=== PATIENT | male | born 1950 | race Caucasian/White ===

== ENCOUNTER → 2024-01-14 06:41 | Outpatient (REF) | payer MEDICARE, OTHER, SELFPAY ==
[2024-01-14 08:41] LABS: PSA, Total - Screen 2.18 ng/ml (0.0-4.0)
== END ==
LOC: REG 06:41
PROVIDERS: ATTENDING PHYSICIAN Urology; FAMILY PHYSICIAN Internal Medicine
DX: Z12.5 Encounter for screening for malignant neoplasm of prostate (principal)
CPT/HCPCS: 36415; G0103

== ENCOUNTER → 2024-01-27 06:33 | Outpatient (REF) | payer MEDICARE, OTHER, SELFPAY ==
[2024-01-27 08:17] LABS: ALT (SGPT) 51 U/L (0-50); AST (SGOT) 54 U/L (17-59); Albumin 4.2 g/dl (3.5-5.0); Alkaline Phosphatase 37 U/L (38-126); Blood Urea Nitrogen 21 mg/dl (9-20); Calcium 9.6 mg/dl (8.4-10.2); Carbon Dioxide 27 mmol/L (22-30); Chloride 107 mmol/L (98-107); Glucose 97 mg/dl (70-99); HDL Cholesterol 40 mg/dl; LDL Cholesterol, Calculated 67 mg/dl; Potassium 4.1 mmol/L (3.5-5.1); Sodium 140 mmol/L (135-145); Total Cholesterol 118 mg/dl (50-199); Total Protein 6.8 g/dl (6.3-8.2); Triglyceride 58 mg/dl (10-149); Very Low Density Lipoprotein 11 mg/dl (0-30); eGFR > 60.00
[2024-01-27 09:36] LABS: Microalbumin, Random Urine <0.6 mg/dl (0.6-1.7)
[2024-01-27 09:54] LABS: Glycohemoglobin (HgbA1c) 5.6 % (4.0-5.6)
== END ==
LOC: REG 06:33
PROVIDERS: ATTENDING PHYSICIAN Internal Medicine; REFERRING PHYSICIAN Internal Medicine Cardiovascular Disease
DX: I25.10 Atherosclerotic heart disease of native coronary artery without angina pectoris (principal); R73.01 Impaired fasting glucose; E78.00 Pure hypercholesterolemia, unspecified
CPT/HCPCS: 36415; 80053; 80061; 82043; 82570; 83036

== ENCOUNTER → 2024-05-06 11:09 | Outpatient (REF) | payer MEDICARE, OTHER, SELFPAY ==
[2024-05-06 13:36] LABS: HDL Cholesterol 37 mg/dl; LDL Cholesterol, Calculated 58 mg/dl; Total Cholesterol 105 mg/dl (50-199); Triglyceride 53 mg/dl (10-149); Very Low Density Lipoprotein 10 mg/dl (0-30)
== END ==
LOC: REG 11:09
PROVIDERS: ATTENDING PHYSICIAN Nurse Practitioner; FAMILY PHYSICIAN Internal Medicine
DX: I25.10 Atherosclerotic heart disease of native coronary artery without angina pectoris (principal)
CPT/HCPCS: 36415; 80061

== ENCOUNTER 2024-11-04 05:12 | Emergency (ER) | payer MEDICARE, OTHER, SELFPAY ==
[2024-11-04] VITALS (7 sets, daily range): BP systolic 132–146; BP diastolic 67–73; BMI 23.9
[2024-11-04] MEDS: NSS 1000 IV (05:49)
[2024-11-04 05:50] LABS: Urine Albumin Negative (Neg - Trace); Urine Bilirubin Negative (Negative); Urine Character Clear (Clear); Urine Color Yellow; Urine Glucose Negative (Negative); Urine Ketone Negative (Negative); Urine Leukocyte Negative (Negative); Urine Nitrite Negative (Negative); Urine Occult Blood 1+ (Negative); Urine Urobilinogen Negative (Neg - 1+)
[2024-11-04] MEDS: ZOFRAN 4 MG IV (05:50)
[2024-11-04 05:53] LABS: % Basophils 0.5 % (0-2); % Eosinophils 2.1 % (0-6); % Immature Granulocytes 0.3 % (0-0.5); % Lymphocytes 17.3 % (20.5-51.1); % Monocytes 9.5 % (1.7-9.3); % Neutrophils 70.3 % (42.2-75.2); Absolute Eosinophils 0.2 10^3/uL (0-0.7); Absolute Lymphocytes 1.5 10^3/uL (1.2-3.4); Absolute Monocytes 0.8 10^3/uL (0.1-0.6); Absolute Neutrophils 6.1 10^3/uL (1.4-6.5); Hematocrit 44.7 % (39.0-52.0); Hemoglobin 14.8 g/dL (13.0-18.0); Mean Corp Hgb Conc. 33.1 g/dL (33.0-37.0); Mean Corpuscular Hgb 28.4 pg (27.0-31.0); Mean Corpuscular Volume 85.6 fL (80.0-94.0); Mean Platelet Volume 9.4 fL (7.4-10.4); Nucleated Red Blood Cells % 0 % (-); Platelet Count 190 10^3/uL (130-400); Red Blood Cell Count 5.22 10^6/uL (4.70-6.10); Red Cell Dist. Width 13.1 % (11.5-14.5); White Blood Cell Count 8.6 10^3/uL (4.8-10.8)
[2024-11-04 06:04] LABS: Urine Bacteria Few (Negative); Urine Squamous Cell 0-2 /LPF (Few); Urine White Cell 0-2 /HPF (0-5)
[2024-11-04 06:12] LABS: ALT (SGPT) 48 U/L (0-50); AST (SGOT) 40 U/L (17-59); Albumin 4.1 g/dl (3.5-5.0); Alkaline Phosphatase 45 U/L (38-126); Blood Urea Nitrogen 20 mg/dl (9-20); Calcium 9.7 mg/dl (8.4-10.2); Carbon Dioxide 26 mmol/L (22-30); Chloride 101 mmol/L (98-107); Estimated Creatinine Clearance 72 ml/min; Glucose 125 mg/dl (70-99); Lipase 143 U/L (23-300); Potassium 4.2 mmol/L (3.5-5.1); Sodium 136 mmol/L (135-145); Total Bilirubin 1.6 mg/dl (0.2-1.3); Total Protein 6.5 g/dl (6.3-8.2); eGFR > 60.00
--- NOTE | 2024-11-04 07:23 | ED.GENMED ---
History of Present Illness
General
Chief Complaint: Abdominal Pain
Source: patient
Exam Limitations: none
Time Seen by Provider: 11/04/24 07:10
History of Present Illness
History of Present Illness:
74-year-old male with history of coronary artery disease on aspirin statin lisinopril and pantoprazole presents with onset of abdominal pain at 3 AM. The pain has been constant. This woke him up from sleep. Said something does not feel quite
right. Its under his ribs but not pleuritic. He denies chest pain. He does have a history of coronary artery disease requiring several stents. He states his sensation today feels somewhat different than what he had when he had his stents placed.
He notes softer stools lately. No urinary symptoms. No prior abdominal surgical history. No fever. The pain does not radiate to the back. No other complaints
Past History
Past History
ED Past Medical History: CAD, GERD, HTN and Hypercholesterolemia
ED Past Surgical History: Cardiac (Cardiac stents)
Phy Exam
Physical Exam
Physical Exam:
General: Well-appearing male no acute respiratory distress
HEENT: Normocephalic atraumatic
Heart: Bradycardic but regular
Lungs: Clear no wheeze
Abdomen soft slightly tender to the epigastric and left side of the abdomen. No guarding or rebound. Normal bowel sounds nondistended
Extremities: No cyanosis or edema
Skin: Warm no rash
Course
Orders/Labs/Results
Orders:
Orders
11/04/24 05:30
IV Insert/Care/Rem.- Treatment PRN
11/04/24 05:41
Complete Blood Count/With Diff Urgent
Comprehensive Metabolic Panel Urgent
Lipase Urgent
Urinalysis Reflex To Culture Urgent
Date Specimen was Collected: 11/04/24
Time Specimen was Collected: 05:30
Urine Microscopic Reflex Cult Urgent
11/04/24 05:46
0.9% Sodium Chloride 1000 ml [Nss] 1,000 ml IV BOLUS
Ondansetron Injectable [Zofran] 4 mg IV NOW STA
11/04/24 07:22
Electrocardiogram (*1) Urgent
Reason for Study: Abdominal Pain
EKG- Treatment ONCE
11/04/24 07:23
CT Abd/pelvis W Iv Cont Urgent
Comment:
Reason For Exam: abdominal pain
11/04/24 07:24
Troponin I Urgent
Abnormal Lab Results
11/04/24
05:41
Absolute Monos (auto) 0.8 H 10^3/uL
(0.1-0.6)
Lymphocytes % 17.3 L %
(20.5-51.1)
Monocytes % 9.5 H %
(1.7-9.3)
Glucose 125 H mg/dl
(70-99)
Total Bilirubin 1.6 H mg/dl
(0.2-1.3)
Ur Occult Blood Reflex 1+ A
(Negative)
Urine RBC 7-10 A /HPF
(0-2)
Urine Bacteria (Reflex) Few A
(Negative)
11/04/24 05:41
11/04/24 05:41
Vital Signs
Initial and Last Documented VS:
Initial Vital Signs
Temp Pulse Resp BP Pulse Ox
98 F 50 18 146/70 98
11/04/24 05:14 11/04/24 05:14 11/04/24 05:14 11/04/24 05:14 11/04/24 05:14
Last Documented Vital Signs
Temp Pulse Resp BP Pulse Ox
98 F 46 14 132/69 95
11/04/24 05:14 11/04/24 08:00 11/04/24 08:00 11/04/24 08:00 11/04/24 08:00
MDM/Problems Addressed
Differential Diagnosis Includes:
Abdominal pain. Consider constipation versus pancreatitis versus biliary colic versus diverticulitis. He does have a history of coronary artery disease. Will get troponin and EKG as well as basic labs. Lipase is normal. CT of the abdomen and
pelvis with IV contrast pending. Offered pain medicine however he declined.
*Critical Care Note
Total Time (30-74mins, 75-104mins- exclusive of procedures): Not Applicable
Update Note
Update Note:
CT shows no obvious acute finding. There is diverticulosis without convincing evidence of diverticulitis. Clinically the pretest suspicion for diverticulitis was moderately high. Labs reviewed without significant finding. Patient feeling
slightly improved since the CAT scan and having a bowel movement. Question viral illness versus early diverticulitis. Will rec clear liquid diet and will prescribe Augmentin.
ED Attending Note
-
Portions of this chart may have been created with voice recognition software.� Occasional wrong word or��sound alike� substitutions may have occurred due to the inherent limitations of voice recognition software.
Discharge Plan
Departure
Patient Disposition: Home (Routine Discharge)
Date of Disposition: 11/04/24
Time of Disposition: 10:15
Patient with high blood pressure during this ER visit?: No
Discharge Problem:
Abdominal pain
Instructions: Diverticulitis (DC)
Prescriptions:
New
amoxicillin-pot clavulanate 875-125 mg tablet
1 tab PO BID Qty: 14 0RF
No Action
atorvastatin [Lipitor] 80 mg Tablet
80 mg PO DAILY
tamsulosin 0.4 mg Capsule
0.4 mg PO HS
pantoprazole 40 mg Tablet,Delayed Release (Dr/Ec)
40 mg PO DAILY
lisinopril 10 mg Tablet
10 mg PO DAILY
aspirin [Aspirin Child] 81 mg Tablet,Chewable
81 mg PO DAILY
Referrals:
UNKNOWN - PT DOES,NOT KNOW [Family Provider] -
Activity Restrictions/Additional Instructions:
Drink plenty clear liquids. Progressive bland diet as tolerated. Use Augmentin as directed. Return if worse otherwise follow-up with your doctor. Also follow-up with your doctor recheck urinalysis to ensure resolution of hematuria
Interventions
Interventions:
*Risk Screen - Suicide Last Done: 11/04/24 05:14
*General Assessment Last Done: 11/04/24 05:40
*Neglect/Abuse Screening Last Done: 11/04/24 05:14
*ED- Fall Risk Assessment Last Done: 11/04/24 05:40
*ED COVID-19 Vaccine History Last Done: 11/04/24 05:40
XL-Mokcjo-Kozbqpiujv Assessment Last Done: 11/04/24 05:55
Discharge Date and Time
Print Language: BELGIAN
[2024-11-04 08:28] LABS: Troponin I < 0.012 ng/ml
== END 2024-11-04 10:30 | disposition home or self-care (01) ==
LOC: EMR 05:12
PROVIDERS: Physician Assistant; Student in an Organized Health Care Education/Training Program; EMERGENCY PHYSICIAN Emergency Medicine
DX: R10.9 Unspecified abdominal pain (principal); I25.10 Atherosclerotic heart disease of native coronary artery without angina pectoris; I10 Essential (primary) hypertension; K21.9 Gastro-esophageal reflux disease without esophagitis; E78.00 Pure hypercholesterolemia, unspecified; Z95.5 Presence of coronary angioplasty implant and graft
CPT/HCPCS: 99284; 96374; 74177; 80053; 81003; 81015; 83690; 84484; 85025; 93005; Q9967

== ENCOUNTER 2025-06-21 07:20 | Emergency (ER) | payer MEDICARE, OTHER, SELFPAY ==
[2025-06-21 07:23] VITALS: BP 143/73
--- NOTE | 2025-06-21 09:26 | ED.GENMED ---
History of Present Illness
<Ananth Martines MD, Resident - Last Filed: 06/21/25 09:57>
General
Chief Complaint: Skin Problem
Time Seen by Provider: 06/21/25 09:11
History of Present Illness
History of Present Illness:
Patient is a 74-year-old male with PMH of CAD s/p stenting (2018, 2020), HLD, HTN, and bradycardia who presents to the [facility] ED for swollen left hand after a bee sting yesterday. Patient was stung by bee on the dorsal aspect of his left hand
around 12:30 PM yesterday afternoon. Patient subsequently noticed swelling of his left hand and wrist yesterday evening. No associated numbness, weakness, or pain in his LUE. Patient iced his hand last night, but it did not cause any reduction of
swelling. Of note, patient has a metallic ring on his left ring finger, which she is unable to remove due to the swelling. Patient has not taken any other medications for the bee sting and swelling, including NSAIDs or antihistamines. No other
symptoms, including angioedema, shortness of breath, wheezing, chest pain, F/F/C, or N/V/D. No history of allergies. No prior similar episodes. No family history of allergic reactions, including to bees. Patient has been stung by bees multiple
times throughout his life. The most recent episode was approximately 2-3 weeks ago, but he had not been stung for a long, unspecified time prior to that episode. Patient patient had a splinter on the palmar aspect of his left hand at the base of
the thumb 1 week ago. He attempted to extract the splinter, but he was unsuccessful. Patient had minor localized swelling around the splinter, though he did not have any redness or pain around it.
Past History
<Ananth Martines MD, Resident - Last Filed: 06/21/25 09:57>
Past History
ED Past Medical History: CAD, GERD, HTN and Hypercholesterolemia
ED Past Surgical History: Cardiac (Cardiac stents)
Review of Systems
<Ananth Martines MD, Resident - Last Filed: 06/21/25 09:57>
Review of Systems
Constitutional: Denies fever, fatigue or chills
Respiratory: Reports other (Denies wheezing); Denies trouble breathing
Cardiac: Denies chest pain
ABD/GI: Denies nausea, vomiting or diarrhea
Musculoskeletal: Reports edema (Left hand and wrist)
Neurological: Denies headache, weakness or numbness
Phy Exam
<Ananth Martines MD, Resident - Last Filed: 06/21/25 09:57>
Physical Exam
Physical Exam:
General: NAD. Conversant.
Skin/MSK: Nonpitting edema of left hand and wrist. No erythema, TTP, or warmth. Full ROM of left wrist and hand. Metallic ring on the left fourth digit.
CV: Bradycardic. Regular rhythm. No M/R/G. Pulses 2+ bilateral upper extremities. Capillary refill <2 seconds.
Pulm: CTAB. No wheezes or crackles.
HEENT: No swelling of tongue, lips, oropharynx, or face.
Course
<Ananth Martines MD, Resident - Last Filed: 06/21/25 09:57>
Vital Signs
Initial and Last Documented VS:
Initial Vital Signs
Temp Resp
97.9 F 18
06/21/25 07:21 06/21/25 07:21
Last Documented Vital Signs
Temp Pulse Resp BP Pulse Ox
98.6 F 82 20 131/85 99
06/21/25 10:24 06/21/25 10:24 06/21/25 10:24 06/21/25 10:24 06/21/25 10:24
<Dayton Styles MD - Last Filed: 06/21/25 13:16>
Vital Signs
Initial and Last Documented VS:
Initial Vital Signs
Temp Resp
97.9 F 18
06/21/25 07:21 06/21/25 07:21
Last Documented Vital Signs
Temp Pulse Resp BP Pulse Ox
98.6 F 82 20 131/85 99
06/21/25 10:24 06/21/25 10:24 06/21/25 10:24 06/21/25 10:24 06/21/25 10:24
<Ananth Martines MD, Resident - Last Filed: 06/21/25 09:57>
MDM/Problems Addressed
Differential Diagnosis Includes:
Localized allergic reaction (bee sting)
Cellulitis
MDM/Problems Addressed:
Assessment: Patient is a 74-year-old male with PMH of CAD, HTN, HLD, bradycardia who presents to the [facility] ED with progressive swelling of his left hand that extends into his wrist following a bee sting earlier yesterday afternoon. No signs of
anaphylaxis or infection, including shortness of breath, wheezing, angioedema, chest pain, N/V/D or F/F/C. Of note, patient has a metallic wedding ring on his finger, which continues to have some mobility on his finger. Suspect localized allergic
reaction to bee sting.
Plan:
#Bee sting
Patient counseled to take Benadryl 25 mg every 6 hours, elevate his hand, and ice his hand upon discharge
Patient counseled to return to ED if worsening swelling and/or reduced mobility of ring, particularly with associated numbness or weakness of fourth digit
<Ananth Martines MD, Resident - Last Filed: 06/21/25 09:57>
*Pulse Oximetry
SaO2: 98
Patient hypoxic: no
*Critical Care Note
Total Time (30-74mins, 75-104mins- exclusive of procedures): Not Applicable
ED Attending Note
<Ananth Martines MD, Resident - Last Filed: 06/21/25 09:57>
-
Portions of this chart may have been created with voice recognition software.� Occasional wrong word or��sound alike� substitutions may have occurred due to the inherent limitations of voice recognition software.
<Dayton Styles MD - Last Filed: 06/21/25 13:16>
ED Attending Note
Patient seen and examined by attending physician: Yes
ED Attending Note:
Patient presents to ED secondary to worsening left hand swelling after bee sting yesterday afternoon. Patient has been icing the affected hand without improvement symptoms. Patient has not taken any medications. Denies fever or chills. Denies
loss of sensation or weakness. Denies chest pain or shortness of breath. Patient has been stung by bee in the past, without similar symptoms.
Physical Exam
General: no apparent distress, not acutely ill. afebrile
Head: nc/at. eomi
Neck: supple. normal range of motion
Heart: s1/s2 regular rate and rhythm
Lungs: no acute respiratory distress. clear bilaterally
Neuro: alert and oriented x 3. no focal neurological deficits
Skin: left hand - diffuse swelling noted without tenderness/discoloration. isolated punctured marek noted over dorsal aspect between 1st/2nd phalanx without surrounding erythema/ecchymosis
Psychiatric: well kept. interactive and cooperative
Extremities: no edema. no calf tenderness.
History and exam consistent with localized inflammation from bee sting. Patient otherwise is afebrile, neurovascularly intact, and nontoxic-appearing. Patient's ring on his fourth digit, with mild discomfort. However, ring is able to be rotated
freely without any difficulty. As such, decision made to leave the ring on, with but continue to aggressively elevate the affected hand along with ice application, as well as Benadryl [id number]. Advised to return to ED with worsening
symptoms. Patient expressed understanding at time of discharge.
Discharge Plan
Departure
Patient Disposition: Home (Routine Discharge)
Date of Disposition: 06/21/25
Time of Disposition: 09:55
Patient with high blood pressure during this ER visit?: No
Condition: Good
Covid-19: Not Applicable
Discharge Problem:
Bee sting
Prescriptions:
No Action
atorvastatin [Lipitor] 80 mg Tablet
80 mg PO DAILY
tamsulosin 0.4 mg Capsule
0.4 mg PO HS
pantoprazole 40 mg Tablet,Delayed Release (Dr/Ec)
40 mg PO DAILY
lisinopril 10 mg Tablet
10 mg PO DAILY
aspirin [Aspirin Child] 81 mg Tablet,Chewable
81 mg PO DAILY
amoxicillin-pot clavulanate 875-125 mg tablet
1 tab PO BID Qty: 14 0RF
Referrals:
Rachel Xavier MD [Family Provider, Internal Medicine]
Activity Restrictions/Additional Instructions:
- Patient counseled to take Benadryl 25 mg every 6 hours, elevate his hand, and ice his hand upon discharge until swelling resolves
- Patient counseled to return to ED if worsening swelling and/or reduced mobility of ring, particularly with associated numbness or weakness of fourth digit
Interventions
Interventions:
*Risk Screen - Suicide Last Done: 06/21/25 10:24
*General Assessment Last Done: 06/21/25 10:24
*Neglect/Abuse Screening Last Done: 06/21/25 10:24
*ED- Fall Risk Assessment Last Done: 06/21/25 10:24
*ED COVID-19 Vaccine History Last Done: 06/21/25 10:24
*ED Influenza Vaccine History Last Done: 06/21/25 10:24
*Nursing Disposition Last Done: 06/21/25 10:26
ED-Skin Assessment Last Done: 06/21/25 10:24
Discharge Date and Time
Discharge Date/Time: 06/21/25 10:27
Print Language: NEPALI
[2025-06-21 10:24] VITALS: BP 131/85; BMI 25.1
== END 2025-06-21 10:27 | disposition home or self-care (01) ==
LOC: EMR 07:20
PROVIDERS: EMERGENCY PHYSICIAN Emergency Medicine; FAMILY PHYSICIAN Internal Medicine
DX: T63.441A Toxic effect of venom of bees, accidental (unintentional), initial encounter (principal); I25.10 Atherosclerotic heart disease of native coronary artery without angina pectoris; I10 Essential (primary) hypertension; E78.00 Pure hypercholesterolemia, unspecified; Z95.5 Presence of coronary angioplasty implant and graft
CPT/HCPCS: 99283